=== PATIENT | male | born 1975 | race Caucasian/White ===

== ENCOUNTER 2017-05-27 09:37 | Emergency (ER) | payer MEDICAID ==
[~2017-05-27] VITALS: Ht 177.8 cm; Wt 103.5 kg
[~2017-05-27 09:37] MED LIST: CALC500C17 PO; GLIM2TAB PO; HYDR-4446 PO; METF850T PO; SIMV20TA1 PO; SYN.1 PO
[2017-05-27 09:46] VITALS: BP 145/76
--- NOTE | 2017-05-27 10:36 | NUR ---
Patient ambulated to bed 07.
--- NOTE | 2017-05-27 10:37 | NUR ---
41/M C/O GENERAL WEAKNESS, X 2 DAYS. ADMITS DRANK A 12 PACK OF BEERS WEDNESDAY. HX OF THYROIDECTOMY, DM . DENIES N/V/D; SKIN IS PINK/WARM/DRY; AAOX4 WITH EVEN AND STEADY GAIT; LUNGS CLEAR BL; HR EVEN AND REGULAR; PT DENIES ANY FEVER, CP, SOB, OR COUGH AT THIS TIME; PATIENT STATES PAIN OF 0/10 AT THIS TIME; PATIENT POSITIONED FOR COMFORT; HOB ELEVATED; BEDRAILS UP X2; BED DOWN. ER MD MADE AWARE OF PT STATUS.
--- NOTE | 2017-05-27 10:54 | NUR ---
Patient being evaluated by DR SWANN at bedside.
--- NOTE | 2017-05-27 11:30 | NUR ---
Patient appears to be resting comfortably in bed. BP 135/78; DENIES HEADACHE OR DIZINESS AT THIS TIME. Respirations even and unlabored.WILL CONTINUE TO MONITOR.
[2017-05-27 11:57] LABS: PROTHROMBIN TIME 10.2 secs (10.8-13.4)
[2017-05-27 12:08] LABS: ALBUMIN 3.8 g/dL (3.4-5.0); ANION GAP 14.8 (8-16); CARBON DIOXIDE 28.7 mmol/L (21-32); CREATININE 0.8 mg/dL (0.7-1.3); POTASSIUM 3.5 mmol/L (3.5-5.1); THYROID STIMULATING HORMONE 0.25 uIU/mL (0.34-3.74); TOTAL BILIRUBIN 0.5 mg/dL (0.0-1.0)
[2017-05-27 12:09] LABS: BASOPHILS # (AUTO) 0.1 K/uL (0.00-0.22); BASOPHILS % (AUTO) 1.7 % (0.0-2.0); EOSINOPHILS # (AUTO) 0.2 K/uL (0-0.4); EOSINOPHILS % (AUTO) 2.7 % (0.0-4.0); HEMATOCRIT 46.3 % (36-52); HEMOGLOBIN 15.2 g/dL (12.0-18.0); LYMPHOCYTES # (AUTO) 1.9 K/uL (2.0-11.5); LYMPHOCYTES % (AUTO) 27.3 % (20.5-51.1); MEAN CORPUSCULAR HEMOGLOBIN 29 pg (27-31); MEAN CORPUSCULAR HGB CONC 33 g/dL (33-37); MEAN CORPUSCULAR VOLUME 87 fL (80-94); MONOCYTES # (AUTO) 0.5 K/uL (0.8-1.0); MONOCYTES % (AUTO) 7.7 % (1.7-9.3); NEUTROPHILS # (AUTO) 4.4 K/uL (1.8-7.7); NEUTROPHILS % (AUTO) 60.6 % (42.2-75.2); PLATELET COUNT (AUTO) 205 K/uL (140-450); RED BLOOD CELL COUNT(AUTO) 5.34 MIL/uL (4.20-6.10); RED CELL DISTRIBUTION WIDTH 12.8 % (11.6-13.7); WHITE BLOOD COUNT (AUTO) 7.1 K/uL (4.8-10.8)
[2017-05-27] MEDS ORDERED: CALCIUM CARB 600 MG TAB PO SCH (12:20)
[2017-05-27] MEDS ORDERED: CALCIUM GLUCONATE 10% 1000 MG/10 ML VIAL IVP ONE (12:25)
--- NOTE | 2017-05-27 13:10 | NUR ---
IV removed, catheter intact and site benign. Applied folded 4x4 gauze and tape to stop bleeding.
[2017-05-27 13:13] VITALS: BP 162/90
--- NOTE | 2017-05-27 13:13 | NUR ---
Patient discharged with BP162/90; DENIES HEADACHE OR DIZINESS AT THIS TIME; MD MADE AWARE. Written and verbal after care instructions given and explained. Patient verbalized understanding. Ambulatory with steady gait. All questions addressed prior to discharge. Advised to follow up with PMD.
== END 2017-05-27 13:13 | disposition home or self-care (01) ==
LOC: MED 09:37
DX: R53.1 Weakness (principal); E83.51 Hypocalcemia; E03.9 Hypothyroidism, unspecified; R79.1 Abnormal coagulation profile; E11.9 Type 2 diabetes mellitus without complications; Z79.899 Other long term (current) drug therapy
CPT/HCPCS: 36415; 80053; 82948; 84443; 85025; 85610; 85730; 93005; 96374; 99285; J0610; 96361

== ENCOUNTER 2017-06-26 17:05 | Emergency (ER) | payer MEDICAID ==
[~2017-06-26] VITALS: Ht 175.3 cm; Wt 101.3 kg
[~2017-06-26 17:05] MED LIST changes: +ACET-8386 PO; -HYDR-4446 PO
[2017-06-26 17:10] VITALS: BP 139/77
--- NOTE | 2017-06-26 19:27 | NUR ---
PT TAKEN TO BED 8
--- NOTE | 2017-06-26 19:40 | NUR ---
41/M C/O ABDOMINAL PAIN x 4 DAYS. PAIN / PRESSURE NON-RADIATING. PT DENIES N/V BUT STATES HE HAS CONSTIPATION LBM:06/25/2017. BS REPORTED HX: DM, THYROID PROBLEM MEDS: GLIMEPIRDE 2 MG, CALCIUM 500MG, METFORIN 500MG, CALCITROL 0.25MG CAPS Addendum: 06/26/17 at 1943 by JESICA C/O TENDERNESS TO LUQ TO TOUCH, NON RADIATING PAIN. BS REPORTED AT 140
--- NOTE | 2017-06-26 20:01 | NUR ---
Dr. Esqueda evaluating patient at bedside.
[2017-06-26 20:53] LABS: HEMATOCRIT 45.7 % (36-52); HEMOGLOBIN 15.1 g/dL (12.0-18.0); MEAN CORPUSCULAR HEMOGLOBIN 29 pg (27-31); MEAN CORPUSCULAR HGB CONC 33 g/dL (33-37); MEAN CORPUSCULAR VOLUME 88 fL (80-94); PLATELET COUNT (AUTO) 206 K/uL (140-450); RED CELL DISTRIBUTION WIDTH 12.9 % (11.6-13.7); WHITE BLOOD COUNT (AUTO) 7.3 K/uL (4.8-10.8)
[2017-06-26 20:53] LABS: APPEARANCE,URINE CLEAR (CLEAR); BILIRUBIN,URINE NEGATIVE (NEGATIVE); BLOOD, URINE NEGATIVE (NEGATIVE); COLOR,URINE YELLOW (YELLOW); LEUKOCYTE ESTERASE ,URINE NEGATIVE (NEGATIVE); NITRITE, URINE NEGATIVE (NEGATIVE); PH,URINE 6.5 (5.0-9.0); UGLUCOSE NEGATIVE (NEGATIVE)
[2017-06-26 21:02] LABS: ANION GAP 11.7 (8-16); CARBON DIOXIDE 32.1 mmol/L (21-32); CREATININE 0.9 mg/dL (0.7-1.3); POTASSIUM 3.8 mmol/L (3.5-5.1)
[2017-06-26 21:07] LABS: PHOSPHORUS 5.9 mg/dL (2.5-4.9); TOTAL BILIRUBIN 0.4 mg/dL (0.0-1.0)
[2017-06-26 21:18] LABS: EOSINOPHILS % (MANUAL) 3 % (0-4); LYMPHOCYTES % (MANUAL) 50 % (20-46); MONOCYTES % (MANUAL) 5 % (5-12)
--- NOTE | 2017-06-26 23:40 | NUR ---
Patient discharged with v/s stable. Written and verbal after care instructions given and explained. Patient verbalized understanding. Ambulatory with steady gait. All questions addressed prior to discharge. Advised to follow up with PMD.
[2017-06-26 23:43] VITALS: BP 128/74
== END 2017-06-26 23:40 | disposition home or self-care (01) ==
LOC: MED 17:05
DX: R10.32 Left lower quadrant pain (principal); R11.0 Nausea; R03.0 Elevated blood-pressure reading, without diagnosis of hypertension; E11.9 Type 2 diabetes mellitus without complications
CPT/HCPCS: 36415; 80053; 81003; 82330; 82948; 83690; 83735; 84100; 85025; 99285

== ENCOUNTER 2017-07-03 17:02 | Emergency (ER) | payer MEDICAID ==
[~2017-07-03] VITALS: Ht 175.3 cm; Wt 103.0 kg
[2017-07-03 17:14] VITALS: BP 150/81
--- NOTE | 2017-07-03 18:00 | NUR ---
Patient ambulated to bed 7. RN evaluating patient at bedside.
--- NOTE | 2017-07-03 18:16 | NUR ---
PATIENT PRESENTS TO ED WITH C/O DIZZINESS . PT STATES HE WAS HAVING LUNCH WHEN HE SUDDENLY FELT LIKE HE WAS GOING TO FAINT . DENIES N/V/D; SKIN IS PINK/WARM/DRY; AAOX4 WITH EVEN AND STEADY GAIT; LUNGS CLEAR BL; HR EVEN AND REGULAR; PT DENIES ANY FEVER, CP, SOB, OR COUGH AT THIS TIME; PATIENT STATES PAIN OF 0/10 AT THIS TIME; VSS; PATIENT POSITIONED FOR COMFORT; HOB ELEVATED; BEDRAILS UP X2; BED DOWN. ER MD MADE AWARE OF PT STATUS.
[2017-07-03] MEDS ORDERED: NACL 0.9% 1,000 ML IV ONE (18:50)
[2017-07-03 19:04] LABS: BASOPHILS # (AUTO) 0.2 K/uL (0.00-0.22); EOSINOPHILS # (AUTO) 0.1 K/uL (0-0.4); HEMATOCRIT 44.7 % (36-52); HEMOGLOBIN 14.8 g/dL (12.0-18.0); LYMPHOCYTES # (AUTO) 1.9 K/uL (2.0-11.5); MEAN CORPUSCULAR HEMOGLOBIN 29 pg (27-31); MEAN CORPUSCULAR HGB CONC 33 g/dL (33-37); MEAN CORPUSCULAR VOLUME 87 fL (80-94); MONOCYTES # (AUTO) 0.5 K/uL (0.8-1.0); NEUTROPHILS # (AUTO) 4.5 K/uL (1.8-7.7); PLATELET COUNT (AUTO) 203 K/uL (140-450); RED BLOOD CELL COUNT(AUTO) 5.12 MIL/uL (4.20-6.10); RED CELL DISTRIBUTION WIDTH 12.3 % (11.6-13.7); WHITE BLOOD COUNT (AUTO) 7.2 K/uL (4.8-10.8)
--- NOTE | 2017-07-03 19:04 | NUR ---
learning technologist at bedside.
--- NOTE | 2017-07-03 19:16 | NUR ---
REPORT RECEIVED FROM CATHY MCELROY
[2017-07-03 19:21] LABS: ALBUMIN 3.8 g/dL (3.4-5.0); ANION GAP 11.9 (8-16); CREATININE 0.9 mg/dL (0.7-1.3); POTASSIUM 3.9 mmol/L (3.5-5.1); TOTAL BILIRUBIN 0.3 mg/dL (0.0-1.0)
--- NOTE | 2017-07-03 19:25 | NUR ---
Pt report given to CATHY KAISER. Transfer of care at this time.
[2017-07-03 19:29] LABS: CREATINE KINASE MB 1.5 ng/mL (0-3.6)
[2017-07-03 20:46] VITALS: BP 147/76
== END 2017-07-03 20:46 | disposition home or self-care (01) ==
LOC: MED 17:02
DX: K63.89 Other specified diseases of intestine (principal); E11.9 Type 2 diabetes mellitus without complications; Z79.84 Long term (current) use of oral hypoglycemic drugs
CPT/HCPCS: 36415; 71010; 80053; 82550; 82553; 82948; 84484; 85025; 93005; 96360; 99285; J7030; Q0092

== ENCOUNTER 2018-04-08 20:15 | Emergency (ER) | payer MEDICAID ==
[~2018-04-08] VITALS: Ht 167.6 cm; Wt 100.9 kg
[2018-04-08 20:20] VITALS: BP 144/80
--- NOTE | 2018-04-08 20:30 | NUR ---
PT AMBULATED TO BED 8. GAVE REPORT TO YESENIA MORGAN
--- NOTE | 2018-04-08 20:35 | NUR ---
PATIENT IS A 42 Y/O MALE WHO PRESENTS TO THE ED C/O OF A THROAT COMPLAINT. PT STATES THAT HE SOMETHING A FEW DAYS AGO AND FEELS SOMETHING. PT REPORTS 3/10 ACHING THROAT PAIN THAT DOES NOT RADIATE. PT DENIES CP, SOB, N/V/D. PT AWAKE AND ALERT, RR EVEN/UNLABORED. PT REPOSITIONED FOR COMFORT, BED IN LOWEST POSITION. ER MD DR. PATRICIA NOTIFIED. WILL CONTINUE TO MONITOR.
[2018-04-08] MEDS ORDERED: PANTOPRAZOLE 40 MG TABEC PO ONE (21:00)
--- NOTE | 2018-04-08 22:10 | NUR ---
PATIENT TAKEN TO CT WITH TECH VIA WHEELCHAIR.
--- NOTE | 2018-04-08 22:17 | NUR ---
PATIENT RETURN FROM CT.
--- NOTE | 2018-04-08 22:30 | NUR ---
PATIENT RESTING AT THIS TIME. NO SIGNS OF DISTRESS.
[2018-04-08 22:50] VITALS: BP 138/85
--- NOTE | 2018-04-08 22:50 | NUR ---
Patient discharged with v/s stable. Written and verbal after care instructions given and explained. Patient alert, oriented and verbalized understanding of instructions. Ambulatory with steady gait. All questions addressed prior to discharge. ID band removed. Patient advised to follow up with PMD. Rx of MAALOX 15ML AND PROTONIX 40MG given. Patient educated on indication of medication including possible reaction and side effects. Opportunity to ask questions provided and answered.
== END 2018-04-08 22:50 | disposition home or self-care (01) ==
LOC: MED 20:15
DX: K21.9 Gastro-esophageal reflux disease without esophagitis (principal); E11.9 Type 2 diabetes mellitus without complications; Z90.89 Acquired absence of other organs
CPT/HCPCS: 70360; 70490; 99284

== ENCOUNTER 2020-02-28 17:41 | Emergency (ER) | payer MEDICAID ==
[~2020-02-28] VITALS: Ht 175.3 cm; Wt 97.5 kg
[2020-02-28 17:52] VITALS: BP 154/80
--- NOTE | 2020-02-28 17:55 | NUR ---
PT AMBULATED TO ER BED 01.
--- NOTE | 2020-02-28 18:00 | NUR ---
C/O PAIN/REDNESS/SWELLING TO R SIDE OF GROIN X1 MONTH. PT HAS A FIRM REDDENED LUMP WITH A WHITE BASE TO THE R SIDE GROIN. DENIES FEVER/N/V. BED PUT IN LOW POSITION, SIDE RAIL UP X1.
[2020-02-28] MEDS ORDERED: KETOROLAC 60 MG/2 ML VIAL IM ONE (19:20)
--- NOTE | 2020-02-28 19:45 | NUR ---
PAIN REDUCED FROM 9/10 TO 4/10 IN GROIN AREA. NADR. VSS.
[2020-02-28 19:55] VITALS: BP 148/78
--- NOTE | 2020-02-28 19:55 | NUR ---
Patient discharged with v/s stable. Written and verbal after care instructions given and explained. Patient alert, oriented and verbalized understanding of instructions. Ambulatory with steady gait. All questions addressed prior to discharge. ID band removed. Patient advised to follow up with PMD. Rx of MOTRIN 800MG, KEFLEX given. Patient educated on indication of medication including possible reaction and side effects. Opportunity to ask questions provided and answered.
== END 2020-02-28 19:55 | disposition home or self-care (01) ==
LOC: MED 17:41
DX: L02.224 Furuncle of groin (principal); E11.9 Type 2 diabetes mellitus without complications; E07.9 Disorder of thyroid, unspecified; Z79.899 Other long term (current) drug therapy
CPT/HCPCS: 96372; 99283; J1885

== ENCOUNTER 2021-04-26 17:29 | Emergency (ER) | payer MEDICAID ==
[~2021-04-26] VITALS: Ht 172.7 cm; Wt 101.6 kg
[2021-04-26 17:51] VITALS: BP 171/89
--- NOTE | 2021-04-26 18:09 | NUR ---
PT TO SY[facility] Ball
--- NOTE | 2021-04-26 18:19 | NUR ---
45 Y/O MALE BIB C/O DIZZINESS, WEAKNESS , SOB X1DAY. DENIES N/V/D. GOT COVID VACCINE 4 DAYS AGO. BLOOD SUGAR 208 AT THIS TIME. PMH: DEMETRIUS BURKETT
--- NOTE | 2021-04-26 18:26 | NUR ---
KEYLA CALLAHAN AT PT BEDSIDE FOR FURTHER EVALUATION.
[2021-04-26 18:33] LABS: BASOPHILS % (AUTO) 0.8 % (0.0-2.0); EOSINOPHILS # (AUTO) 0.2 K/uL (0-0.4); EOSINOPHILS % (AUTO) 3.1 % (0.0-4.0); HEMATOCRIT 39.6 % (36-52); HEMOGLOBIN 13.7 g/dL (12.0-18.0); LYMPHOCYTES # (AUTO) 2.1 K/uL (2.0-11.5); LYMPHOCYTES % (AUTO) 34.6 % (20.5-51.1); MEAN CORPUSCULAR HEMOGLOBIN 31 pg (27-31); MEAN CORPUSCULAR HGB CONC 35 g/dL (33-37); MEAN CORPUSCULAR VOLUME 88.4 fL (80-94); MONOCYTES # (AUTO) 0.5 K/uL (0.8-1.0); NEUTROPHILS # (AUTO) 3.1 K/uL (1.8-7.7); NEUTROPHILS % (AUTO) 52.5 % (42.2-75.2); PLATELET COUNT (AUTO) 194 K/uL (140-450); RED BLOOD CELL COUNT(AUTO) 4.48 MIL/uL (4.20-6.10); RED CELL DISTRIBUTION WIDTH 13.7 % (11.6-13.7)
[2021-04-26 18:50] LABS: ALBUMIN 3.8 g/dL (3.4-5.0); ANION GAP 11.6 (8-16); CARBON DIOXIDE 29.8 mmol/L (21-32); CREATININE 1.1 mg/dL (0.6-1.3); POTASSIUM 3.4 mmol/L (3.5-5.1); TOTAL BILIRUBIN 0.4 mg/dL (0.0-1.0)
--- NOTE | 2021-04-26 19:12 | NUR ---
PT MOVED TO [facility].
[2021-04-26] MEDS ORDERED: CALC-577 PO (19:31)
[2021-04-26 19:45] VITALS: BP 145/89
--- NOTE | 2021-04-26 19:45 | NUR ---
Patient discharged with v/s stable. Written and verbal after care instructions given and explained. Patient alert, oriented and verbalized understanding of instructions. Ambulatory with steady gait. All questions addressed prior to discharge. ID band removed. Patient advised to follow up with PMD. Rx of CALCUIM given. Patient educated on indication of medication including possible reaction and side effects. Opportunity to ask questions provided and answered.
== END 2021-04-26 19:45 | disposition home or self-care (01) ==
LOC: MED 17:29
DX: R53.1 Weakness (principal); E83.51 Hypocalcemia; E11.9 Type 2 diabetes mellitus without complications; E07.9 Disorder of thyroid, unspecified; Z79.84 Long term (current) use of oral hypoglycemic drugs; Z79.899 Other long term (current) drug therapy; Z98.890 Other specified postprocedural states
CPT/HCPCS: 36415; 80053; 81002; 82948; 85025; 99283

== ENCOUNTER 2022-12-11 13:53 | Emergency (ER) | payer MEDICAID ==
[~2022-12-11] VITALS: Ht 170.2 cm; Wt 108.9 kg
[~2022-12-11 13:53] MED LIST changes: -ACET-8386 PO; +ACET-8905 PO; +CALC-577 PO; +METF-713 PO; -METF850T PO; +SIMV-372 PO; -SIMV20TA1 PO
[2022-12-11 14:01] VITALS: BP 128/77
--- NOTE | 2022-12-11 14:30 | NUR ---
47/M WALKED IN C/O RLQ ABD PAIN ONSET 3 DAYS AGO ACCOMPANIED BY DIARRHEA. DENIES BLOOD IN STOOL. DENIES NV. AFEBRILE AT TRIAGE. PMH: DM
[2022-12-11] MEDS ORDERED: KETOROLAC 15 MG/ML VIAL IM ONE (15:30)
[2022-12-11 15:50] LABS: BASOPHILS % (AUTO) 0.7 % (0.0-2.0); EOSINOPHILS # (AUTO) 0.2 K/uL (0-0.4); EOSINOPHILS % (AUTO) 2.8 % (0.0-4.0); HEMATOCRIT 46.1 % (36-52); HEMOGLOBIN 15.7 g/dL (12.0-18.0); LYMPHOCYTES # (AUTO) 2.4 K/uL (2.0-11.5); MEAN CORPUSCULAR HEMOGLOBIN 30 pg (27-31); MEAN CORPUSCULAR HGB CONC 34 g/dL (33-37); MEAN CORPUSCULAR VOLUME 87.7 fL (80-94); MONOCYTES # (AUTO) 0.5 K/uL (0.8-1.0); MONOCYTES % (AUTO) 7.7 % (1.7-9.3); NEUTROPHILS # (AUTO) 3.7 K/uL (1.8-7.7); NEUTROPHILS % (AUTO) 53.8 % (42.2-75.2); PLATELET COUNT (AUTO) 246 K/uL (140-450); RED BLOOD CELL COUNT(AUTO) 5.26 MIL/uL (4.20-6.10); RED CELL DISTRIBUTION WIDTH 13.6 % (11.6-13.7); WHITE BLOOD COUNT (AUTO) 6.9 K/uL (4.8-10.8)
[2022-12-11 16:01] LABS: APPEARANCE,URINE CLEAR (CLEAR); BILIRUBIN,URINE NEGATIVE (NEGATIVE); BLOOD, URINE NEGATIVE (NEGATIVE); COLOR,URINE YELLOW (YELLOW); LEUKOCYTE ESTERASE ,URINE NEGATIVE (NEGATIVE); NITRITE, URINE NEGATIVE (NEGATIVE); UGLUCOSE 3+ (NEGATIVE)
[2022-12-11 16:18] LABS: ANION GAP 13.9 (8-16); CREATININE 0.8 mg/dL (0.6-1.3); POTASSIUM 3.9 mmol/L (3.5-5.1); TOTAL BILIRUBIN 0.4 mg/dL (0.0-1.0)
[2022-12-11 17:55] VITALS: BP 132/68
== END 2022-12-11 17:45 | disposition home or self-care (01) ==
LOC: MED 13:53
DX: R10.9 Unspecified abdominal pain (principal); R19.7 Diarrhea, unspecified; E11.9 Type 2 diabetes mellitus without complications; E03.9 Hypothyroidism, unspecified; Z79.4 Long term (current) use of insulin; Z79.899 Other long term (current) drug therapy; Z98.890 Other specified postprocedural states
CPT/HCPCS: 36415; 74176; 80053; 81003; 83690; 85025; 96372; 99285; J1885

== ENCOUNTER 2023-06-14 08:32 | Emergency (ER) | payer MEDICAID ==
[~2023-06-14] VITALS: Ht 175.3 cm; Wt 100.7 kg
[~2023-06-14 08:32] MED LIST changes: -GLIM2TAB PO; +GLIM2TAB96 PO
[2023-06-14 08:52] VITALS: BP 123/76; PULSE 88; RESP 18; TEMP 96.8; O2SAT 98
[2023-06-14] MEDS ORDERED: MORPHINE SULFATE 4 MG/ML SYR IVP ONE (09:10)
[2023-06-14] MEDS ORDERED: ONDANSETRON 4 MG/2 ML VIAL IVP ONE (09:10)
[2023-06-14] MEDS ORDERED: NACL 0.9% 1,000 ML IV ONE (09:10)
[2023-06-14 10:18] LABS: APPEARANCE,URINE CLEAR (CLEAR); BILIRUBIN,URINE NEGATIVE (NEGATIVE); BLOOD, URINE NEGATIVE (NEGATIVE); COLOR,URINE YELLOW (YELLOW); LEUKOCYTE ESTERASE ,URINE NEGATIVE (NEGATIVE); NITRITE, URINE NEGATIVE (NEGATIVE); PROTEIN,URINE NEGATIVE (NEGATIVE); UGLUCOSE 3+ (NEGATIVE); UROBILINOGEN,URINE 0.2 EU/dL (0.2 - 1)
[2023-06-14 10:22] LABS: BACTERIA,URINE OCCASSIONAL /HPF (None Seen); RBC,URINE 0-5 /HPF (0-5); SQUAMOUS EPITHELIAL CELL,UR 0-3 (FEW) /LPF (0-3 (FEW)); WBC,URINE 0-5 /HPF (0-5)
[2023-06-14 10:25] LABS: BASOPHILS # (AUTO) 0.1 K/uL (0.00-0.22); BASOPHILS % (AUTO) 0.6 % (0.0-2.0); EOSINOPHILS # (AUTO) 0.2 K/uL (0-0.4); EOSINOPHILS % (AUTO) 1.9 % (0.0-4.0); HEMATOCRIT 46.1 % (36-52); HEMOGLOBIN 15.8 g/dL (12.0-18.0); LYMPHOCYTES # (AUTO) 2.2 K/uL (2.0-11.5); LYMPHOCYTES % (AUTO) 24.9 % (20.5-51.1); MEAN CORPUSCULAR HEMOGLOBIN 30 pg (27-31); MEAN CORPUSCULAR HGB CONC 34 g/dL (33-37); MEAN CORPUSCULAR VOLUME 88.7 fL (80-94); MONOCYTES # (AUTO) 0.7 K/uL (0.8-1.0); MONOCYTES % (AUTO) 8.5 % (1.7-9.3); NEUTROPHILS # (AUTO) 5.6 K/uL (1.8-7.7); NEUTROPHILS % (AUTO) 64.1 % (42.2-75.2); PLATELET COUNT (AUTO) 220 K/uL (140-450); RED CELL DISTRIBUTION WIDTH 13.6 % (11.6-13.7); WHITE BLOOD COUNT (AUTO) 8.8 K/uL (4.8-10.8)
[2023-06-14 10:35] LABS: ALBUMIN 3.6 g/dL (3.4-5.0); ANION GAP 13.3 (8-16); CALCIUM 7.5 mg/dL (8.5-10.1); CARBON DIOXIDE 28.4 mmol/L (21-32); CREATININE 0.8 mg/dL (0.6-1.3); POTASSIUM 3.7 mmol/L (3.5-5.1); TOTAL BILIRUBIN 0.5 mg/dL (0.0-1.0); TOTAL PROTEIN, SERUM 7.5 g/dL (6.4-8.2)
[2023-06-14 11:22] VITALS: O2SAT 98
[2023-06-14] MEDS ORDERED: fentaNYL citrate 0.05 MG/ML VIAL IVP ONE (13:00)
[2023-06-14] MEDS ORDERED: LIDOCAINE 2% 1000 MG/50 ML VIAL INJ ONE (13:00)
[2023-06-14 13:20] VITALS: O2SAT 96
[2023-06-14 13:59] VITALS: BP 109/64; PULSE 72; RESP 18; TEMP 98.6; O2SAT 96
[2023-06-14] MEDS ORDERED: SULF-59 PO (14:03)
[2023-06-14] MEDS ORDERED: HYDR-5191 PO (14:03)
== END 2023-06-14 14:35 | disposition home or self-care (01) ==
LOC: MED 08:32
DX: L02.214 Cutaneous abscess of groin (principal); L03.314 Cellulitis of groin; E11.9 Type 2 diabetes mellitus without complications; E07.9 Disorder of thyroid, unspecified; Z79.899 Other long term (current) drug therapy; Z98.890 Other specified postprocedural states
CPT/HCPCS: 10060; 36415; 74177; 80053; 81001; 83605; 83690; 85025; 87040; 96361; 96374; 96375; 99285; J2001; J2270; J2405; J3010; J7030; Q9967

== ENCOUNTER 2023-06-26 20:13 | Emergency (ER) | payer MEDICAID ==
[~2023-06-26] VITALS: Ht 167.6 cm; Wt 100.7 kg
[~2023-06-26 20:13] MED LIST changes: +HYDR-5191 PO; +SULF-59 PO
[2023-06-26 20:16] VITALS: BP 146/74; PULSE 104; RESP 18; TEMP 101.5; O2SAT 97
[2023-06-26] MEDS ORDERED: ACETAMINOPHEN 325 MG TAB PO ONE (20:25)
[2023-06-26] MEDS ORDERED: NACL 0.9% 2,000 ML IV SCH (20:40)
[2023-06-26 21:28] LABS: BASOPHILS % (AUTO) 0.6 % (0.0-2.0); EOSINOPHILS % (AUTO) 0.2 % (0.0-4.0); HEMATOCRIT 44.4 % (36-52); HEMOGLOBIN 15.5 g/dL (12.0-18.0); LYMPHOCYTES # (AUTO) 1.2 K/uL (2.0-11.5); LYMPHOCYTES % (AUTO) 17.8 % (20.5-51.1); MEAN CORPUSCULAR HEMOGLOBIN 31 pg (27-31); MEAN CORPUSCULAR HGB CONC 35 g/dL (33-37); MEAN CORPUSCULAR VOLUME 88.7 fL (80-94); MONOCYTES # (AUTO) 0.8 K/uL (0.8-1.0); MONOCYTES % (AUTO) 11.7 % (1.7-9.3); NEUTROPHILS # (AUTO) 4.8 K/uL (1.8-7.7); NEUTROPHILS % (AUTO) 69.7 % (42.2-75.2); PLATELET COUNT (AUTO) 195 K/uL (140-450); RED BLOOD CELL COUNT(AUTO) 5.01 MIL/uL (4.20-6.10); RED CELL DISTRIBUTION WIDTH 13.4 % (11.6-13.7); WHITE BLOOD COUNT (AUTO) 6.9 K/uL (4.8-10.8)
[2023-06-26 21:46] LABS: ALANINE AMINOTRANSFERASE 29 U/L (12-78); ALBUMIN 3.7 g/dL (3.4-5.0); ALKALINE PHOSPHATASE 89 U/L (50-136); ANION GAP 16.5 (8-16); ASPARTATE AMINOTRANSFERASE 16 U/L (15-37); CALCIUM 8.2 mg/dL (8.5-10.1); CARBON DIOXIDE 24.9 mmol/L (21-32); CHLORIDE 97 mmol/L (98-107); CREATININE 1.1 mg/dL (0.6-1.3); GFR ARICAN-AMERICAN 92 mL/min (>90); GFR NON ARICAN-AMERICAN 76 mL/min (>90); GLUCOSE 240 mg/dL (74-106); POTASSIUM 3.4 mmol/L (3.5-5.1); SODIUM SERUM 135 mmol/L (136-145); TOTAL BILIRUBIN 0.4 mg/dL (0.0-1.0); TOTAL PROTEIN, SERUM 7.8 g/dL (6.4-8.2); UREA NITROGEN, BLOOD 14 mg/dL (7-18)
[2023-06-26 21:52] LABS: LACTIC ACID 3.2 mmol/L (0.4-2.0)
[2023-06-26] MEDS ORDERED: PIPERACILLIN/TAZOBACTAM 3.375 GM in DEXTROSE 5% 50 ML IV ONE (21:55)
[2023-06-26] MEDS ORDERED: PIPERACILLIN/TAZOBACTAM 3.375 GM VIAL IV ONE (22:01)
[2023-06-26 22:27] LABS: APPEARANCE,URINE CLEAR (CLEAR); BILIRUBIN,URINE NEGATIVE (NEGATIVE); BLOOD, URINE NEGATIVE (NEGATIVE); COLOR,URINE YELLOW (YELLOW); LEUKOCYTE ESTERASE ,URINE NEGATIVE (NEGATIVE); NITRITE, URINE NEGATIVE (NEGATIVE); PH,URINE 6.5 (5.0-9.0); PROTEIN,URINE NEGATIVE (NEGATIVE); UGLUCOSE 3+ (NEGATIVE); UROBILINOGEN,URINE 0.2 EU/dL (0.2 - 1)
[2023-06-26 22:48] LABS: FLU A ANTIGEN negative (NEGATIVE); FLU B ANTIGEN negative (NEGATIVE)
[2023-06-26 22:59] LABS: BACTERIA,URINE None Seen /HPF (None Seen); MUCUS,URINE None Seen /LPF (None Seen); RBC,URINE 0-5 /HPF (0-5); SQUAMOUS EPITHELIAL CELL,UR 0-3 (FEW) /LPF (0-3 (FEW)); TRICHOMONAS,URINE None Seen /HPF (None Seen); WBC,URINE 0-5 /HPF (0-5); YEAST,URINE None Seen /HPF (None Seen)
[2023-06-27 06:45] VITALS: BP 115/61; PULSE 96; RESP 18; TEMP 98.3; O2SAT 97
== END 2023-06-27 06:00 | disposition home or self-care (01) ==
LOC: MED 20:13
DX: R50.9 Fever, unspecified (principal); M79.10 Myalgia, unspecified site; R51.9 Headache, unspecified; E11.9 Type 2 diabetes mellitus without complications; E03.9 Hypothyroidism, unspecified; Z79.899 Other long term (current) drug therapy; Z79.84 Long term (current) use of oral hypoglycemic drugs; Z20.822 Contact with and (suspected) exposure to COVID-19
CPT/HCPCS: 36415; 71045; 74177; 80053; 81001; 83605; 84484; 85025; 87040; 87086; 87426; 87804; 96365; 99291; J2543; Q9967; J7030

== ENCOUNTER 2023-06-29 08:15 | Emergency (ER) | payer MEDICAID ==
[~2023-06-29] VITALS: Ht 167.6 cm; Wt 100.7 kg
[2023-06-29 08:31] VITALS: BP 103/61; PULSE 102; RESP 22; TEMP 102.9; TEMP 99.2; O2SAT 98
[2023-06-29] MEDS ORDERED: IBUP-1842 PO (09:34)
[2023-06-29 09:36] LABS: FLU A ANTIGEN negative (NEGATIVE); FLU B ANTIGEN negative (NEGATIVE)
[2023-06-29 09:51] VITALS: BP 103/61; PULSE 102; RESP 22; TEMP 99.2; O2SAT 98
== END 2023-06-29 09:51 | disposition home or self-care (01) ==
LOC: MED 08:15
DX: J02.9 Acute pharyngitis, unspecified (principal); Z20.822 Contact with and (suspected) exposure to COVID-19; R50.9 Fever, unspecified; R51.9 Headache, unspecified; E11.9 Type 2 diabetes mellitus without complications; E03.9 Hypothyroidism, unspecified; Z79.4 Long term (current) use of insulin; Z79.899 Other long term (current) drug therapy
CPT/HCPCS: 87081; 99283